=== PATIENT | male | born 1995 | race Caucasian/White ===

== ENCOUNTER 2022-07-06 15:02 | Emergency (ER) | payer OTHER, SELFPAY ==
[2022-07-06 15:10] VITALS: BP 110/69; PULSE 68; RESP 16; TEMP 37; O2SAT 100
--- NOTE | 2022-07-06 15:20 | ED.WOUNDLAC ---
HPI - Wound/Laceration General Chief Complaint: Wound/Laceration Stated Complaint: jennifer removed Time Seen by Provider: 07/06/22 15:18 Source: patient and RN notes reviewed Mode of arrival: ambulatory Limitations: no limitations History of Present Illness HPI narrative: 27-year-old male presents concern for removal of jennifer. He reports he had jennifer placed in his scalp approximately 10 to 12 days ago at another facility. He reports no problems, no swelling, drainage, pain. Related Data Home Medications Medication Instructions Recorded Confirmed cephalexin 500 mg capsule mg 07/06/22 Allergies Allergy/AdvReac Type Severity Reaction Status Date / Time No Known Allergies Allergy Verified 07/06/22 15:09 Review of Systems Review of Systems: CONSTITUTIONAL: Denies malaise, chills, sweats, or fever. SKIN: Reports healing jennifer to the scalp MUSCULOSKELETAL: Denies muscle skeletal pain NEUROLOGIC: Denies numbness, weakness All systems reviewed & are unremarkable except as noted in HPI and below PMFSH Comments At time of signature, agree with nursing past medical, surgical, social and family history. There is no relevant family history pertinent to the presenting complaint Exam Narrative: GENERAL: Well-appearing, well-nourished, and in no acute distress. HEAD: Normocephalic, atraumatic. EYES: PERRLA, conjunctivae clear ENT: Mucous membranes moist. NECK: Supple. No lymphadenopathy CHEST: Clear to auscultation. No respiratory distress. HEART: Regular rate and rhythm. SKIN: Warm, dry. Healed laceration with scabbing noted to the scalp, 5 intact jennifer without erythema, induration, drainage NEURO: Alert and oriented x3. PSYCH: Normal mood and affect Course Course Emergency Course: Patient is aware of diagnosis, understands and agrees to treatment plan. Anticipatory guidance given. Patient agrees to follow-up as directed and is aware of reasons to seek care at the emergency department. Portions of this record may have been created with voice recognition software Level of Care: Express Care Visit Vital Signs Vital signs: Vital Signs Temperature 98.6 F 07/06/22 15:10 Pulse Rate 68 07/06/22 15:10 Respiratory Rate 16 07/06/22 15:10 Blood Pressure 110/69 07/06/22 15:10 Pulse Oximetry 100 07/06/22 15:10 Oxygen Delivery Room Air 07/06/22 15:10 Temperature 98.6 F 07/06/22 15:10 Pulse Rate 68 07/06/22 15:10 Respiratory Rate 16 07/06/22 15:10 Blood Pressure 110/69 07/06/22 15:10 Pulse Oximetry 100 07/06/22 15:10 Oxygen Delivery Room Air 07/06/22 15:10 Reviewed. MDM - Wound/Laceration MDM Narrative Medical decision making narrative: Verbal consent was obtained. Wound well approximated, no erythema, induration, or discharge noted. 5 jennifer completely removed in a sterile fashion. Patient tolerated procedure well, no complications. Patient advised to look for and return for any signs of infection such as redness, swelling, discharge, or worsening pain. Differential Diagnosis Differential diagnosis: Likely laceration, abrasion and avulsion of skin Critical Care Time Critical Care Time Critical Care Time: No Discharge Plan Discharge Clinical Impression: Encounter for removal of jennifer Patient Disposition: Home, Self-Care Condition: Stable Instructions: General Patient Instructions Additional Instructions: AFTER the jennifer are removed: Clean your wound as directed. Carefully wash your wound with soap and water. Pat the area dry with a clean towel. Protect your wound. Your wound can swell, bleed, or split open if it is stretched or bumped. Prescriptions: No Action cephalexin 500 mg capsule Follow-up/Referrals: UNKNOWN,DOCTOR [Primary Care Provider] - Time of Disposition: 15:23
== END 2022-07-06 15:31 | disposition home or self-care (01) ==
PROVIDERS: Emergency Provider Nurse Practitioner
DX: S01.01XD Laceration without foreign body of scalp, subsequent encounter (principal); X58.XXXD Exposure to other specified factors, subsequent encounter
CPT/HCPCS: 99211; G0463